=== PATIENT | female | born 1990 | race Caucasian/White ===

== ENCOUNTER → 2018-02-01 15:05 | Outpatient (CLI) | payer OTHER, SELFPAY ==
[2018-02-01 15:34] LABS: Add Manual Diff / Slide Review NO; Basophils Percent Auto 0.3 % (0-2); Eosinophils Percent Auto 0.6 % (2-4); Hematocrit 33.9 % (36-46); Hemoglobin 12.2 g/dL (12.0-16.0); Lymphocytes Percent Auto 21.2 % (25-40); Mean Corpuscular Hemoglobin 30.2 PG (26-34); Mean Corpuscular Volume 83.9 fL (80-100); Monocytes Percent Auto 6.6 % (3-14); Neutrophils Absolute Auto 8700 /uL (3000-5900); Neutrophils Percent Auto 71.3 % (50-75); Platelet Count 282 X10^3/uL (150-400); Red Blood Cell Count 4.04 X10^6/uL (4.0-5.2); Red Cell Distribution Width 13.5 % (11.6-14.8); White Blood Cell Count 12.2 X10^3/uL (4.5-11.0)
[2018-02-01 15:52] LABS: Appearance Urine UA CLEAR; Bilirubin Urine UA NEGATIVE (NEGATIVE); Color Urine UA YELLOW; Glucose Urine UA NEGATIVE (Normal); Ketones Urine UA NEGATIVE (NEGATIVE); Leukocyte Esterase Urine UA NEGATIVE (NEGATIVE); Nitrite Urine UA Negative (Negative); Occult Blood Urine UA TRACE-LYSED (Negative); Protein Urine UA NEGATIVE (Negative); Urobilinogen Urine UA 0.2 E.U./dL (0.2); pH Urine UA 5.5 (4.5-8.0)
[2018-02-01 16:49] LABS: Glucose 97 mg/dL (70-100)
[2018-02-01 18:27] LABS: Hemoglobin A1C% w Est Avg Glu 4.8 % (4.0-6.0)
[2018-02-02 18:36] LABS: Hepatitis B Surface Antigen NEGATIVE s/c (NEGATIVE)
[2018-02-02 18:54] LABS: HIV 1 and 2 Antibody NEGATIVE (NEGATIVE); Hep C Virus Ab w/Reflex Quant NEGATIVE s/c (NEGATIVE)
[2018-02-07 15:15] LABS: HSV 2 IGG AB < 0.90 index (< 0.90)
[2018-02-08 20:50] LABS: Rapid Plasma Reagin NON-REACTIVE
== END ==
PROVIDERS: Visit Provider Specialist
DX: Z34.01 Encounter for supervision of normal first pregnancy, first trimester (principal); Z3A.01 Less than 8 weeks gestation of pregnancy; Z34.90 Encounter for supervision of normal pregnancy, unspecified, unspecified trimester
CPT/HCPCS: 36415; 80055; 81003; 82947; 83036; 86695; 86696; 86703; 86787; 86803; 86850; 86900; 86901; 87086

== ENCOUNTER 2018-07-02 21:41 | Outpatient (CLI) | payer OTHER, SELFPAY ==
--- NOTE | 2018-07-04 13:00 | PM.OBTRLD ---
Visit Information Visit Information Date of evaluation: 07/02/18 Primary OB Provider: Yarely Hernandez Reason for Evaluation: Yes rule out labor Vital Signs Vital Signs: Blood pressure 135/82, pulse of 89, temperature 36.6? Review of Systems Review of Systems Patient complained of losing her mucous plug and cramping. Good movement. No rupture membranes. All systems reviewed & are unremarkable except as noted in HPI and below Evaluation Evaluation Baseline heart rate: 130 Variability: Moderate (11-25) monitor accelerations: Present monitor decelerations: Absent Contraction Frequency (minutes): 7 Uterine Contraction Intensity: Mild Category of Tracing: I Cervical dilation (cm): 1 Diagnosis, Plan/Disposition Final Diagnosis (1) 36 weeks gestation of : Current Visit: No Status: Acute (2) Premature uterine contractions: Current Visit: No Status: Acute Plan/Disposition Plan: Patient was discharged home to be followed up at routine OB appointment unless her contractions increase in strength and frequency. OB Disposition: home
== END 2018-07-02 22:40 | disposition home or self-care (01) ==
LOC: OB 07-03 14:48
PROVIDERS: PCP Family Medicine; Visit Provider Specialist
DX: O60.03 Preterm labor without delivery, third trimester (principal); Z3A.36 36 weeks gestation of pregnancy
CPT/HCPCS: 59025; G0378; G0379

== ENCOUNTER → 2018-07-06 10:37 | Outpatient (CLI) | payer OTHER, SELFPAY ==
[2018-07-07 12:26] LABS: Strep Grp B PCR NEG for Grp B Strep
== END ==
PROVIDERS: PCP Family Medicine; Visit Provider Specialist
DX: Z3A.37 37 weeks gestation of pregnancy (principal)
CPT/HCPCS: 87653

== ENCOUNTER 2018-07-15 00:09 | Inpatient (IN) | payer OTHER, SELFPAY ==
[2018-07-15 00:45] VITALS: BP 142/78
[2018-07-15 01:00] VITALS: TEMP 36.7
[2018-07-15] MEDS: fentaNYL 100 MCG/2 ML INJ IV (01:00)
[2018-07-15 01:37] LABS: Add Manual Diff / Slide Review NO; Basophils Absolute Auto 100 /uL (0-100); Basophils Percent Auto 0.8 % (0-2); Eosinophils Absolute Auto 100 /uL (0-450); Eosinophils Percent Auto 0.6 % (2-4); Hematocrit 35.4 % (36-46); Lymphocytes Absolute Auto 4000 /uL (1100-4500); Lymphocytes Percent Auto 25.5 % (25-40); Mean Corpuscular Hemoglobin 29.1 PG (26-34); Mean Corpuscular Volume 85.4 fL (80-100); Monocytes Absolute Auto 1600 /uL (0-900); Monocytes Percent Auto 9.8 % (3-14); Neutrophils Absolute Auto 10000 /uL (1500-7000); Neutrophils Percent Auto 63.3 % (50-75); Platelet Count 261 X10^3/uL (150-400); Red Blood Cell Count 4.14 X10^6/uL (4.0-5.2); Red Cell Distribution Width 14.5 % (11.6-14.8); White Blood Cell Count 15.8 X10^3/uL (4.5-11.0)
[2018-07-15] MEDS: LACTATED RINGERS 1,000 ML 100 ML IV (06:49)
--- NOTE | 2018-07-15 09:41 | P.PCNOB_ITS ---
Delivery date: 07/15/18 Delivery monitor: external FHT and external uterine Route of delivery: L&D Laceration Description: Periurethral - 1st Degree Estimated blood loss (mL): 250 Anesthesia type: Epidural Narrative: Patient arrived on Labor and delivery with spontaneous rupture membranes in active labor. She received an epidural catheter for pain control. heart tones category 1 to category 2 throughout labor. She delivered spontaneously, over an intact perineum. The viable male was placed on maternal abdomen. After the cord stopped pulsating the cord was clamped, cut, and cord bloods obtained. The placenta did not spontaneously deliver so was manually extracted from the vagina. It appeared to be intact. Patient had no cervical, vaginal tears. There were first-degree periurethral tears that did not require suturing. Both infant and mother doing well. Patient will be monitored for bleeding. [place] Baby 1: Infant gender: Male Presentation: vertex position: Right Occiput Anterior Placenta delivery description: Manual Removal (From vagina) cord vessel description: 3 Vessels score (1 min): 9 score (5 min): 9 Plan for aftercare: Routine care
--- NOTE | 2018-07-15 09:41 | PM.OBHP.1 ---
OB HPI Date/Time Date of admission: 07/15/18 Date Patient Seen: 07/15/18 Time Patient Seen: 07:45 History of Present Condition Chief complaint: evaluation of labor : 1 Para: 0 Estimated Date of Delivery: 07/26/18 Estimated Gestational Age (weeks): 38 Narrative: Erica Cole is a 27 year old female who had spontaneous rupture of membranes and arrived in active labor History of Present care: initiated at week # (15), number of visits (9) and pounds weight gain (61) Dating criteria: LMP confirmed by 2nd trimester US Ultrasounds: normal mid trimester US Obstetrical complications: none Medical complications: other (Borderline diabetes) Preadmission Labs Blood type: O (+) positive -: Antibody screen: negative, GBS status: negative, HBsAG: negative, HIV: negative, HSV 1: positive, HSV 2: negative and RPR/VDLR: negative -: Rubella: immune and Varicella: immune Quad screen: Normal 1 hr GTT: 154 Fasting blood glucose: 97 Evaluation Evaluation Baseline heart rate: 130 Variability: Moderate (11-25) monitor accelerations: Present monitor decelerations: Variable Contraction Frequency (minutes): 3 Uterine Contraction Intensity: Moderate Category of Tracing: II Cervical dilation (cm): 10 Cervical effacement (%): 100 station: -1 Laboratory results: Laboratory Tests 07/15/18 07/15/18 01:20 01:20 WBC 15.8 H RBC 4.14 Hgb 12.0 Hct 35.4 L MCV 85.4 MCH 29.1 MCHC 34.0 RDW 14.5 Plt Count 261 Neut % (Auto) 63.3 Lymph % (Auto) 25.5 [place] % (Auto) 9.8 Eos % (Auto) 0.6 L Baso % (Auto) 0.8 Neut # (Auto) 10447 H Lymph # (Auto) 4000 [place] # (Auto) 1600 H Eos # (Auto) 100 Baso # (Auto) 100 Blood Type O Positive Antibody Screen Negative PFSH Medical History Borderline hyperglycemia (Acute) Migraine headache (Acute) Social History Smoking Status: Never smoker Social History Smoking Status: Never smoker Meds Home Medications Medication Instructions Recorded Confirmed Type vit 10-iron fum-folic 1 tab DAILY 07/15/18 07/15/18 History Allergies Allergy/AdvReac Type Severity Reaction Status Date / Time Penicillins Allergy Unknown Verified 01/12/18 15:57 Review of Systems Review of Systems Patient with headaches but no visual changes or upper quadrant pain. She had spontaneous rupture of membranes. Baby has been moving well. No fevers. All systems reviewed & are unremarkable except as noted in HPI and below Exam Narrative Exam Narrative: HEENT exam within normal limits. Lungs are clear to auscultation and percussion. Heart is regular rate and rhythm no S3-S4 or murmurs. Abdomen is gravid. Extremities with +1 edema and nontender. Objective Labs Result Diagrams: 07/15/18 01:20 Labs: Laboratory Results - last 24 hr 07/15/18 07/15/18 01:20 01:20 WBC 15.8 H RBC 4.14 Hgb 12.0 Hct 35.4 L MCV 85.4 MCH 29.1 MCHC 34.0 RDW 14.5 Plt Count 261 Neut % (Auto) 63.3 Lymph % (Auto) 25.5 [place] % (Auto) 9.8 Eos % (Auto) 0.6 L Baso % (Auto) 0.8 Neut # (Auto) 32590 H Lymph # (Auto) 4000 [place] # (Auto) 1600 H Eos # (Auto) 100 Baso # (Auto) 100 Blood Type O Positive Antibody Screen Negative Assessment and Plan (1) 38 weeks gestation of : Current visit: Yes Status: Acute Plan: Patient is 38 weeks with spontaneous rupture membranes in active labor. She is requesting epidural for pain control. Anticipate vaginal delivery.
[2018-07-15] MEDS: IBUPROFEN 600 MG TABLET PO ×2 (14:01→20:10)
[2018-07-15 22:59] VITALS: TEMP 37.1
[2018-07-15] MEDS: HYDROCODONE/ACET 5/325 TABLET 2 TAB PO (22:59)
[2018-07-16 05:57] LABS: Add Manual Diff / Slide Review NO; Basophils Absolute Auto 100 /uL (0-100); Basophils Percent Auto 0.4 % (0-2); Eosinophils Absolute Auto 100 /uL (0-450); Hematocrit 27.4 % (36-46); Hemoglobin 9.4 g/dL (12.0-16.0); Lymphocytes Absolute Auto 2900 /uL (1100-4500); Lymphocytes Percent Auto 19.9 % (25-40); Mean Corpuscular HGB Conc 34.5 % (30-36); Mean Corpuscular Hemoglobin 29.6 PG (26-34); Mean Corpuscular Volume 85.7 fL (80-100); Monocytes Absolute Auto 1200 /uL (0-900); Monocytes Percent Auto 8.3 % (3-14); Neutrophils Absolute Auto 10400 /uL (1500-7000); Neutrophils Percent Auto 70.4 % (50-75); Platelet Count 208 X10^3/uL (150-400); Red Blood Cell Count 3.19 X10^6/uL (4.0-5.2); Red Cell Distribution Width 14.6 % (11.6-14.8); White Blood Cell Count 14.8 X10^3/uL (4.5-11.0)
[2018-07-16] MEDS: IBUPROFEN 600 MG TABLET PO (08:12)
[2018-07-16] MEDS: PRENATAL VIT,CALC/IRON/FOLIC 1 TABLET 1 TAB PO (08:12)
--- NOTE | 2018-07-16 08:41 | PM.OBDS.1 ---
Discharge Providers Date of admission: 07/15/18 00:09 Discharge Date: 07/16/18 Primary care physician: Guadalupe Barrientos DO Consults: 07/15/18 10:33 Consult to Student Development Advisor Routine Comment: Discharge provider: Yarely Hernandez MD Summary Date Patient Seen: 07/16/18 Time Patient Seen: 08:42 Procedures: Epidural catheter, vaginal delivery, repair of first-degree vaginal tear Hospital Course: Patient arrived on Labor and delivery with spontaneous rupture membranes in active labor. She received an epidural catheter for pain control. She had a spontaneous vaginal delivery. She had repair of for first-degree vaginal laceration. Both and mother doing well. Patient denies any signs or symptoms of preeclampsia. She was urinating and ambulating well. She is breast-feeding without difficulty. Blood pressure 129/74, pulse of 87, temperature 98.2? Abdomen is soft, nontender. Uterus is firm, at U, nontender. Mild lochia. Repair is intact. Extremities with +1 edema, nontender. Patient is O-positive and rubella immune Peripartum Data Delivery Method: Natural Vaginal Laceration description: Vaginal - 1st Degree Procedures: Epidural catheter, vaginal delivery, repair first-degree tear complications: none 1: Gender: Male Disposition of : home Discharge Diagnosis (1) 38 weeks gestation of : Status: Acute (2) Vaginal delivery: Status: Acute (3) Acute blood loss anemia: Status: Acute Time Spent with Patient Total time spent providing and/or coordinating discharge services: Less than 30 minutes Objective Labs Result Diagrams: 07/16/18 05:42 Labs: Laboratory Results - last 24 hr 07/16/18 05:42 WBC 14.8 H RBC 3.19 L Hgb 9.4 L Hct 27.4 L MCV 85.7 MCH 29.6 MCHC 34.5 RDW 14.6 Plt Count 208 Neut % (Auto) 70.4 Lymph % (Auto) 19.9 L [place] % (Auto) 8.3 Eos % (Auto) 1.0 L Baso % (Auto) 0.4 Neut # (Auto) 50594 H Lymph # (Auto) 2900 [place] # (Auto) 1200 H Eos # (Auto) 100 Baso # (Auto) 100 Discharge Plan Discharge Plan Patient Disposition: Home Discharge Med Rec/Prescriptions Prescriptions: New hydrocodone-acetaminophen 5-325 mg Tablet 2 tab PO Q4HR PRN (Reason: Pain, Severe (7-10)) Qty: 20 RF: 0 ibuprofen 600 mg Tablet 600 mg PO Q6HR PRN (Reason: Pain, Mild (1-3)) Qty: 30 RF: 0 docusate sodium 250 mg Capsule 250 mg PO DAILY Qty: 20 RF: 0 ferrous gluconate 324 mg (37.5 mg iron) tablet 324 mg PO BID Qty: 60 RF: 0 Continued vit 10-iron fum-folic tablet 1 tab DAILY RF: 0 Follow up/Referrals: Yarely Hernandez MD [Physician] - 08/09/18 12:00 am (Patient will be seen in my [facility] the needs time.) Guadalupe Barrientos DO [Primary Care Provider] - Provider Discharge Instructions Diet: Regular Activity: Nothing in vagina for 4 weeks Skin/Wound/Dressing Care Report to your healthcare provider any signs of infection, such as:: chills, fever and increased pain Discharge Data Primary Care Provider: Guadalupe Barrientos Attending Provider: Yarely Hernandez Admit Date/Time: 07/15/18 00:09
--- NOTE | 2018-07-16 08:46 | P.DS_ITS ---
Discharge Providers Date of admission: 07/15/18 00:09 Discharge Date: 07/16/18 Primary care physician: Guadalupe Barrientos DO Consults: 07/15/18 10:33 Consult to Boat Mechanic Routine Comment: Discharge provider: Yarely Hernandez MD Summary Date Patient Seen: 07/16/18 Time Patient Seen: 08:42 Procedures: Epidural catheter, vaginal delivery, repair of first-degree vaginal tear Hospital Course: Patient arrived on Labor and delivery with spontaneous rupture membranes in active labor. She received an epidural catheter for pain control. She had a spontaneous vaginal delivery. She had repair of for first-degree vaginal laceration. Both and mother doing well. Patient denies any signs or sy mptoms of preeclampsia. She was urinating and ambulating well. She is breast- feeding without difficulty. Blood pressure 129/74, pulse of 87, temperature 98.2? Abdomen is soft, nontender. Uterus is firm, at U, nontender. Mild lochia. Repair is intact. Extremities with +1 edema, nontender. Patient is O-positive and rubella immune Peripartum Data Infant Delivery Method: Natural Vaginal Laceration description: Vaginal - 1st Degree Procedures: Epidural catheter, vaginal delivery, repair first-degree tear complications: none 1: Gender: Male Disposition of : home Discharge Diagnosis (1) 38 weeks gestation of : Status: Acute (2) Vaginal delivery: Status: Acute (3) Acute blood loss anemia: Status: Acute Time Spent with Patient Total time spent providing and/or coordinating discharge services: Less than 30 minutes Objective Labs Result Diagrams: 07/16/18 05:42 Labs: Laboratory Results - last 24 hr 07/16/18 05:42 WBC 14.8 H RBC 3.19 L Hgb 9.4 L Hct 27.4 L MCV 85.7 MCH 29.6 MCHC 34.5 RDW 14.6 Plt Count 208 Neut % (Auto) 70.4 Lymph % (Auto) 19.9 L [place] % (Auto) 8.3 Eos % (Auto) 1.0 L Baso % (Auto) 0.4 Neut # (Auto) 92068 H Lymph # (Auto) 2900 [place] # (Auto) 1200 H Eos # (Auto) 100 Baso # (Auto) 100 Discharge Plan Discharge Plan Patient Disposition: Home Discharge Med Rec/Prescriptions Prescriptions: New hydrocodone-acetaminophen 5-325 mg Tablet 2 tab PO Q4HR PRN (Reason: Pain, Severe (7-10)) Qty: 20 RF: 0 ibuprofen 600 mg Tablet 600 mg PO Q6HR PRN (Reason: Pain, Mild (1-3)) Qty: 30 RF: 0 docusate sodium 250 mg Capsule 250 mg PO DAILY Qty: 20 RF: 0 ferrous gluconate 324 mg (37.5 mg iron) tablet 324 mg PO BID Qty: 60 RF: 0 Continued vit 10-iron fum-folic tablet 1 tab DAILY RF: 0 Follow up/Referrals: Yarely Hernandez MD [Physician] - 08/09/18 12:00 am (Patient will be seen in my [facility] the needs time.) Guadalupe Barrientos DO [Primary Care Provider] - Provider Discharge Instructions Diet: Regular Activity: Nothing in vagina for 4 weeks Skin/Wound/Dressing Care Report to your healthcare provider any signs of infection, such as:: chills, fever and increased pain Discharge Data Primary Care Provider: Guadalupe Barrientos Attending Provider: Yarely Hernandez Admit Date/Time: 07/15/18 00:09
[2018-07-16 12:25] VITALS: BP 142/78; TEMP 37.1
[2018-07-16] MEDS: HYDROCODONE/ACET 5/325 TABLET 2 TAB PO (13:10)
== END 2018-07-16 13:20 | disposition home or self-care (01) | DRG 807 ==
PROVIDERS: Admitting Provider Specialist; PCP Family Medicine; Visit Provider Specialist
DX: O73.0 Retained placenta without hemorrhage (principal); Z37.0 Single live birth; Z3A.38 38 weeks gestation of pregnancy; O71.82 Other specified trauma to perineum and vulva
CPT/HCPCS: 01967; 36415; 59050; 59400; 85025; 86850; 86900; 86901; G0379; J3010

== ENCOUNTER → 2020-05-06 10:50 | Outpatient (CLI) | payer SELFPAY ==
[2020-05-06 19:51] LABS: Urine N gonorrhoeae NOT DETECTED
[2020-05-06 20:27] LABS: Urine Chlamydia NOT DETECTED
== END ==
PROVIDERS: PCP Specialist; Visit Provider Specialist
DX: Z34.83 Encounter for supervision of other normal pregnancy, third trimester (principal); Z3A.33 33 weeks gestation of pregnancy
CPT/HCPCS: 87491; 87591

== ENCOUNTER → 2020-05-26 10:48 | Outpatient (CLI) | payer SELFPAY ==
[2020-05-27 17:35] LABS: Strep Grp B PCR NEG for Grp B Strep
== END ==
PROVIDERS: PCP Specialist; Visit Provider Obstetrics & Gynecology
DX: Z34.03 Encounter for supervision of normal first pregnancy, third trimester (principal); Z3A.36 36 weeks gestation of pregnancy
CPT/HCPCS: 87653

== ENCOUNTER 2020-06-04 11:41 | Observation (INO) | payer SELFPAY ==
[2020-06-04 12:49] LABS: COVID19 -Nasal RAPID Negative (Negative)
[2020-06-04] MEDS: TERBUTALINE 1 MG/ML VIAL SUBCUT (13:12)
--- NOTE | 2020-06-04 14:28 | P.PCN_ITS ---
Procedures Date/Time Date of procedure: 06/04/20 Time of procedure: 14:28 General Procedure description: Principal diagnosis: 38 week gestation with breech presentation for external cephalic version Planned procedure: External cephalic version. Patient is 38 weeks with ultrasound showing breech presentation. Patient is here for possible external version. Consent form was reviewed with the patient. She understands there is a small risk that she could have distress that could require emergency , from problems with the cord or spontaneous rupture membranes, or abruption of the placenta. Patient may actually go into labor. The fetus was found by ultrasound to still be in breech presentation. heart tone NST was reassuring and reactive. No decelerations. Patient received subcutaneous terbutaline after placement of an IV access. The runstitching machine operator pushed behind the head and trying to push the bottom out of the pelvis. Attempt was for about 20 seconds. heart rate was monitored in was normal. There was no movement of the head. The same procedure was performed 2 other times with no movement. Sterile vaginal exam the fetus bottom was not in the pelvis but was palpable through a 2 cm dilated 80% effaced cervix. Patient was monitored for an hour after attempt. She was discharged home with her section scheduled for June 09. Precautions were reviewed with the patient to return immediately if she has increasing abdominal pain, vaginal bleeding, decreased movement, rupture membranes. Complications: none
== END 2020-06-04 14:40 | disposition home or self-care (01) ==
LOC: LABOR 11:42
PROVIDERS: Admitting Provider Specialist; Referring Provider Specialist; Visit Provider Specialist
DX: O32.1XX0 Maternal care for breech presentation, not applicable or unspecified (principal); Z3A.38 38 weeks gestation of pregnancy
CPT/HCPCS: 59025; 59050; 59412; 76815; 87635; 96372; C9803; G0378; G0379

== ENCOUNTER 2020-06-09 10:32 | Inpatient (IN) | payer SELFPAY ==
--- NOTE | 2020-06-09 11:20 | PM.PREOP ---
Pre-operative Note COVID-19 COVID-19 status: Result pending Result date/Date tested (Pos, Neg/Pending): 06/09/20 Interval Note History & Physical reviewed/Exam performed by Physician: Yes Changes to H&P: No
--- NOTE | 2020-06-09 11:20 | PM.OBHP.1 ---
OB HPI Date/Time Date of admission: 06/09/20 Date Patient Seen: 06/09/20 Time Patient Seen: 11:21 History of Present Condition Chief complaint: : 2 Para: 1 Estimated Date of Delivery: 06/19/20 Estimated Gestational Age (weeks): 38 Narrative: Erica Cole is a 29 year old female admitted for section for breech presentation, uncontrolled gestational diabetes Indications Operative indications ( section): malpresentation History of Present care: good care, initiated at week # (10), number of visits (9) and pounds weight gain (43) Dating criteria: LMP confirmed by 1st trimester US Ultrasounds: normal mid trimester US Obstetrical complications: gestational diabetes (On metformin but uncontrolled) Medical complications: none Preadmission Labs Blood type: O (+) positive -: Antibody screen: negative, GBS status: negative, HBsAG: negative, HIV: negative and RPR/VDLR: negative -: Chlamydia screen: not detected and Gonorrhea screen: not detected -: Rubella: immune and Varicella: immune HCAB: negative PAP: Normal 1 hr GTT: 156 3 hr GTT: 1 hr (171), 2 hr (172) and 3 hr (104) Fasting blood glucose: 102 Narrative: Patient was started on metformin. She was not good at checking her blood sugars. 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 Father Diabetes mellitus Grandfather No known health problems Grandmother Liver cancer Grandfather Alzheimer's dementia Grandmother Diabetes mellitus Altered cardiac tissue perfusion Social History (Updated 11/20/19 @ 11:53 by Misty Grossman RN) marital status: number of children: 1 household members: children pets and animals: No education level: college (BA Degree in [place] : almosted completed her Master's Degree) occupational status: employed current occupational exposures/hazards: No Previous occupational history: works from home : part-time [email or web address] + [employer] Management special linda needs: No Smoking Status: Never smoker second hand exposure: No alcohol intake: former (pre- : rare) substance use type: does not use and marijuana (pre-) Meds Home Medications and Allergies Home Medications Medication Instructions Recorded Confirmed Type vit 10-iron fum-folic 1 tab DAILY 07/15/18 06/03/20 History omeprazole 40 mg capsule,delayed 40 mg PO BID #60 cap 03/11/20 06/03/20 Rx release metformin 500 mg tablet 500 mg PO BID #60 tab 04/08/20 06/03/20 Rx Allergies Allergy/AdvReac Type Severity Reaction Status Date / Time Penicillins Allergy Severe from her Verified 06/03/20 08:34 childhood - anaphylaxis Review of Systems Review of Systems Narrative: Patient denies headaches, scotomata, epigastric pain. No leakage of fluid. Good movement. ROS: Yes All systems reviewed with the patient and are negative except as otherwise documented Exam Vital Signs (past 8 hours): Blood pressure 107/62, pulse of 83, temperature 97.9? Narrative Exam Narrative: HEENT exam within normal limits. Lungs are clear to auscultation percussion. Heart is regular rate and rhythm no S3-S4 murmurs. Abdomen is gravid with the fetus breech documented by ultrasound. Extremities without edema and nontender. Assessment and Plan Assessment and Plan Assessment and Plan narrative: 38 6/7 weeks by dates with breech presentation, uncontrolled diabetes with LGA for primary low-transverse section.
[2020-06-09 12:06] LABS: COVID19 -Nasal RAPID Negative (Negative)
[2020-06-09] MEDS: LACTATED RINGERS 1,000 ML 100 ML IV ×3 (12:10→20:35)
[2020-06-09 12:18] LABS: Add Manual Diff / Slide Review NO; Basophils Absolute Auto 0 /uL (0-100); Basophils Percent Auto 0.3 % (0-2); Eosinophils Absolute Auto 100 /uL (0-450); Eosinophils Percent Auto 0.8 % (2-4); Hematocrit 37.7 % (36-46); Hemoglobin 12.5 g/dL (12.0-16.0); Lymphocytes Absolute Auto 2400 /uL (1100-4500); Lymphocytes Percent Auto 20.1 % (25-40); Mean Corpuscular HGB Conc 33.3 % (30-36); Mean Corpuscular Hemoglobin 29.2 PG (26-34); Mean Corpuscular Volume 87.6 fL (80-100); Monocytes Absolute Auto 900 /uL (0-900); Monocytes Percent Auto 7.8 % (3-14); Neutrophils Absolute Auto 8400 /uL (1500-7000); Platelet Count 213 X10^3/uL (150-400); Red Cell Distribution Width 13.7 % (11.6-14.8); White Blood Cell Count 11.8 X10^3/uL (4.5-11.0)
--- NOTE | 2020-06-09 12:40 | SUR.OPER ---
Supine on Padded OR bed, head on pillow, safety belt at thigh, arms secured on padded arm boards at <90 degrees abduction. Bump under right buttock. Legs uncrossed with pillow under knees, gel pad to heels, tape over blanket to lower legs.
[2020-06-09] MEDS: CLINDAMYCIN 900 MG/50 ML PIGGYBACK 50 MG IV (13:19)
--- NOTE | 2020-06-09 13:38 | SUR.OPER ---
FHT 140, live of female at 1333.
[2020-06-09 14:12] VITALS: BP 102/37; PULSE 79; RESP 12; TEMP 36.2; O2SAT 96
[2020-06-09 14:17] VITALS: BP 94/50; PULSE 81; RESP 12; O2SAT 95
[2020-06-09 14:22] VITALS: BP 94/49; PULSE 75; RESP 16; O2SAT 97
--- NOTE | 2020-06-09 14:25 | PM.OP.1 ---
Operative Date/Time/Diagnoses Date of procedure: 06/09/20 Time of procedure: 14:25 Pre-op diagnosis: Breech presentation uncontrolled gestational diabetes Post-op diagnosis: same Procedure & Clinicians Procedure: Primary low-transverse section Same procedure as scheduled: Yes Indications: Breech presentation with uncontrolled diabetes Surgeon: Yarely Hernandez Graphic Editor: Kristine Matthews Click Yes if Unassisted: No Anesthesia Type: Spinal Operative Notes Findings: Normal tubes, ovaries, uterus. Viable female infant weighing 8 lb 2 oz. Apgars of 8 and 9 Closure Type: primary Specimen(s): none sent Applied: catheter (Biswas) Estimated Blood Loss (mL): 400 Blood products transfused: none Procedure in detail: The patient was brought to the operating room where she underwent a spinal for anesthesia. She was placed in a supine position with a left lateral tilt. A Biswas catheter was placed. Pulsatile stockings were placed and functional throughout the case. 900 mg clindamycin was given IV prior to the incision. Warming was in place. The patient was prepped and draped in usual sterile fashion. A check system was reviewed with the staff in the room. A low transverse incision was made with a scalpel and the incision was carried down to the fascial layer which was incised transversely with scissors. The assistant broker did her side of the incision. The midline attachments are superiorly and inferiorly. Some bleeding was controlled Bovie. The rectus muscles were in the midline and the peritoneal incision was made with no damage to internal structures. The peritoneum was incised and superiorly and inferiorly. The incision was stretched with the surgeon and assistant broker placing traction. Bladder blade was placed and a bladder flap was developed and the bladder held away from the lower uterine segment. An incision was made in the uterus with the scalpel and the incision was extended with stretching. The feet were grasped and the baby was elevated to the abdomen. A moistened towel was placed around the baby and the baby was brought up to the shoulders and the shoulders were rotated allowing release of the arms. A finger was placed in the baby's mouth and the was delivered with fundal pressure by the assistant broker. The infant was bulb suctioned for clear fluid and handed off to the warmer. Cord blood was collected. The placenta delivered spontaneously with traction. The uterus was cleaned with clean laps. The uterine incision was closed in 2 layers of 0 chromic suture the first a running locking layer the second an imbricating layer. The assistant broker was helping to expose the incision. The bladder peritoneum was repaired with 2-0 Vicryl suture. The gutters were cleaned of any remaining fluids and ovaries and tubes were observed to be normal. Adequate hemostasis was noted. The perineum was closed with 2-0 Vicryl suture. The fascia layer was closed with 0 Vicryl suture with 2 stitches. The assistant broker repairing half the incision with helping to retract and expose the incision for the other half. The incision was irrigated and adequate hemostasis noted. The incision was closed with interrupted 3-0 Vicryl sutures and then a subcuticular stitch of 4-0 Vicryl suture. Steri-Strips were placed. The uterus was massaged to remove any clots. The patient went to recovery room in good condition. Counts of instruments and sponges were correct. Dr. Matthews was present throughout the case to assist with retraction, fundal pressure to deliver the , and suturing half the fascia. Complications: none Post-operative Condition: stable Disposition: other ( center) Plan for aftercare: Routine post section
[2020-06-09 14:27] VITALS: BP 97/48; PULSE 74; RESP 12; O2SAT 97
[2020-06-09] MEDS: ONDANSETRON 4 MG/2 ML INJ IV (14:27)
[2020-06-09 14:32] VITALS: BP 103/50; PULSE 72; RESP 11; O2SAT 97
[2020-06-09] MEDS: KETOROLAC 30 MG/ML VIAL IV ×2 (14:32→20:35)
[2020-06-09 15:03] VITALS: BP 107/62
[2020-06-09] MEDS: OXYCODONE IR 5 MG TABLET PO (19:13)
[2020-06-10] MEDS: OXYCODONE IR 5 MG TABLET PO ×4 (01:12→18:45)
[2020-06-10] MEDS: KETOROLAC 30 MG/ML VIAL IV ×2 (02:35→08:26)
--- NOTE | 2020-06-10 05:42 | P.PNOB_ITS ---
Subjective - OB Subjective Patient comments: no complaints Watson baby status: doing well and bottle feeding well Watson feeding status: exclusively bottle feeding Date Patient Seen: 06/10/20 Time Patient Seen: 05:42 Interval history: Patient is postoperative day 1 primary low-transverse section for breech presentation and uncontrolled gestational diabetes Exam Vital Signs (past 8 hours): Blood pressure 109/51, pulse 78, temperature 37.3? Oxygen Delivery Method Room Air Narrative Exam Narrative: Abdomen is soft, nontender. Uterus is firm, U -1, minimally tender. Mild lochia. Extremities with trace edema and nontender. Patient is Rh positive, rubella immune, she received Tdap in the 3rd trimester. Objective Labs Result Diagrams: 06/09/20 12:00 Labs: Laboratory Results - last 24 hr 06/09/20 06/09/20 06/09/20 11:45 12:00 12:00 WBC 11.8 H RBC 4.30 Hgb 12.5 Hct 37.7 MCV 87.6 MCH 29.2 MCHC 33.3 RDW 13.7 Plt Count 213 Neut % (Auto) 71.0 Lymph % (Auto) 20.1 L [place] % (Auto) 7.8 Eos % (Auto) 0.8 L Baso % (Auto) 0.3 Neut # (Auto) 8400 H Lymph # (Auto) 2400 [place] # (Auto) 900 Eos # (Auto) 100 Baso # (Auto) 0 SARS-CoV-2 (PCR) Negative Blood Type O Positive Antibody Screen Negative Assessment & Plan Assessment and Plan (1) Delivery by section for breech presentation: Status: Acute Plan day: 1 plan OB: routine postop care Comments: Patient is stable. She is working towards trying to be discharged later today. Routine precautions reviewed with the patient. Time Spent With Patient Time: Total time spent is greater than 50% in coordination of care (as documented) at patient's floor/unit and/or counseling patient: Time with patient: less than 15 minutes
[2020-06-10 06:44] LABS: Add Manual Diff / Slide Review NO; Basophils Absolute Auto 0 /uL (0-100); Basophils Percent Auto 0.3 % (0-2); Eosinophils Absolute Auto 100 /uL (0-450); Eosinophils Percent Auto 0.7 % (2-4); Hematocrit 32.4 % (36-46); Hemoglobin 10.9 g/dL (12.0-16.0); Lymphocytes Absolute Auto 2000 /uL (1100-4500); Mean Corpuscular HGB Conc 33.6 % (30-36); Mean Corpuscular Hemoglobin 29.5 PG (26-34); Mean Corpuscular Volume 87.8 fL (80-100); Monocytes Absolute Auto 1200 /uL (0-900); Monocytes Percent Auto 10.6 % (3-14); Neutrophils Absolute Auto 8400 /uL (1500-7000); Neutrophils Percent Auto 71.4 % (50-75); Platelet Count 176 X10^3/uL (150-400); Red Cell Distribution Width 13.6 % (11.6-14.8); White Blood Cell Count 11.7 X10^3/uL (4.5-11.0)
[2020-06-10] MEDS: DOCUSATE 250 MG CAPSULE PO (08:26)
[2020-06-10] MEDS: ACETAMINOPHEN 325 MG TABLET 650 MG PO ×2 (08:27→14:34)
[2020-06-10] MEDS: IBUPROFEN 600 MG TABLET PO (14:35)
--- NOTE | 2020-06-10 17:53 | P.DS_ITS ---
Discharge Providers Provider Date of admission: 06/09/20 10:32 Discharge Date: 06/10/20 Primary care physician: Doctor Simi MD Consults: 06/09/20 14:57 Consult to Apprentice Machinist Outside Routine Comment: Discharge provider: Yarely Hernandez MD Summary Hospital Course Date Patient Seen: 06/10/20 Time Patient Seen: 17:53 Procedures: Primary low-transverse section Hospital Course: Patient was admitted for primary low-transverse section for breech presentation and uncontrolled diabetes. The patient did well post operative. She was ambulatory. She is urinating without difficulty. She is passing gas. Her pain is under control. Patient denies headaches, scotomata, epigastric pain. Bleeding is mild. Peripartum Data Infant Delivery Method: Section (Breech presentation) Procedures: Primary low-transverse section complications: none 1: Gender: Female Disposition of : home Discharge Diagnosis (1) Delivery by section for breech presentation: Status: Acute Status at Discharge Cognitive/behavioral status at discharge: oriented Functional status at discharge: independent ambulation Overall status at discharge: patient is progressing back to baseline Time Spent with Patient Time attestation: Total time spent providing and/or coordinating discharge services: Time spent: Less than 30 minutes Objective Labs Result Diagrams: 06/10/20 06:30 Labs: Laboratory Results - last 24 hr 06/10/20 06:30 WBC 11.7 H RBC 3.70 L Hgb 10.9 L Hct 32.4 L MCV 87.8 MCH 29.5 MCHC 33.6 RDW 13.6 Plt Count 176 Neut % (Auto) 71.4 Lymph % (Auto) 17.0 L [place] % (Auto) 10.6 Eos % (Auto) 0.7 L Baso % (Auto) 0.3 Neut # (Auto) 8400 H Lymph # (Auto) 2000 [place] # (Auto) 1200 H Eos # (Auto) 100 Baso # (Auto) 0 Exam Vital Signs (past 8 hours): Blood pressure 112/53, pulse of 84, temperature 36.7? Oxygen Delivery Method Room Air Narrative Exam Narrative: Abdomen is soft, nontender. Uterus is firm, at U, appropriately tender. Dressing is clean, dry, intact. Extremities without edema and nontender. Patient is O positive, rubella immune, and received Tdap in the 3rd trimester. Discharge Plan Discharge Plan Patient Disposition: Home Discharge orders & Medications Prescriptions: New ibuprofen 600 mg Tablet 600 mg PO Q6HR PRN (Reason: Fever/Mild Pain (1-3)) Qty: 30 RF: 0 oxycodone 5 mg Tablet 5 mg PO Q4HR PRN (Reason: Pain, Moderate (4-6)) Qty: 30 RF: 0 Continued omeprazole 40 mg capsule,delayed release(DR/EC) 40 mg PO BID Qty: 60 RF: 2 vit 10-iron fum-folic tablet 1 tab DAILY RF: 0 Discontinued metformin 500 mg tablet 500 mg PO DAILY RF: 0 Follow up/Referrals: Yaerly Hernandez MD [Physician] - 06/15/20 (aquacel removal ) Doctor Belcher MD [Primary Care Provider] - Diet/Activity/Treatments Diet: Regular Activity: Nothing in vagina or lifting over 20 lb for 6 weeks Skin/Wound/Dressing Care Report to your healthcare provider any signs of infection, such as:: chills, fever and increased pain Dressing: Leave dressing on until appointment on June 15 Discharge Data Primary Care Provider: Doctor Simi
[2020-06-10 18:11] VITALS: BP 107/62; PULSE 75; RESP 16; TEMP 36.6
== END 2020-06-10 20:45 | disposition home or self-care (01) | DRG 788 ==
PROVIDERS: Admitting Provider Specialist; Referring Provider Specialist; Visit Provider Specialist
PROC: 10D00Z1 Extraction of Products of Conception, Low, Open Approach (ICD-10-PCS; CPT 59514; principal; 2020-06-09 12:45)
DX: O32.1XX0 Maternal care for breech presentation, not applicable or unspecified (principal); Z3A.38 38 weeks gestation of pregnancy; Z37.0 Single live birth; O24.425 Gestational diabetes mellitus in childbirth, controlled by oral hypoglycemic drugs
CPT/HCPCS: 36415; 59050; 59510; 59514; 76815; 85025; 86850; 86900; 86901; 87635; C9803; J1885; J2274; J2405; J2590; J2704